=== PATIENT | female | born 1990 | race Caucasian/White ===

== ENCOUNTER → 2018-01-10 | Outpatient (CLI) | payer OTHER | LOC: FIMAGING 09:53 | PROVIDERS: ATTEND Advanced Practice Midwife | DX: O09.292 Supervision of pregnancy with other poor reproductive or obstetric history, second trimester (principal); O99.280 Endocrine, nutritional and metabolic diseases complicating pregnancy, unspecified trimester; O99.612 Diseases of the digestive system complicating pregnancy, second trimester; Z3A.19 19 weeks gestation of pregnancy ==

== ENCOUNTER 2018-06-12 15:43 | Inpatient (IN) | payer OTHER ==
--- NOTE | 2018-06-12 16:27 | PDGENHP ---
History and Physical History and Physical: CARE: [facility] HPI: Patient is a 27 yo G 2 P 0 @ 41 +5 weeks that presents to L&D with complaints of strong uterine contractions and prodromal labor x 48 hours. She states that she has not slept for 2 days and requests augmentation of labor and is considering epidural for pain relief. EDC: 05/31/2018 which is based on LMP: 08/16/2017 which is known and consistent with Ultrasound at 20 weeks. Her is complicated by: ulcerative colitis, hashimotos, anxiety, and carpal tunnel Review of Systems: Constitutional: Denies any fever, chills, or fatigue HEENT: denies any visual changes, difficulty swallowing, hearing loss Cardiovascular: Denies any chest pain, palpitations, leg swelling Respiratory: denies any cough, wheezing, or shortness of breathe GI: Denies any nausea, vomiting, diarrhea, constipation : denies any dysuria, urgency, frequency, vaginal bleeding Musculoskeletal: denies any muscle or bone pain Skin: denies any rashes Neuro: denies any headache, seizures, lightheadedness, dizziness, or loss of consciousness Psychiatric: denies any depression, anxiety, or SI/HI thoughts HISTORY: Previous OB history: 1 prior AB Social history: Family history: denies relevant Past medical history: ulcerative colitis (on meds), carpal tunnel, hashimotos Past surgical history: oral surgery, no general anesthesia Medications: PNV, synthroid, balsalazide, probiotics, magnesium Allergies (list reaction): NKDA LABS: Rh: B+ ABS: Neg Rubella: Immune HbsAg: NR HIV: NR VDRL: NR 1hr: 65 GC: Neg Chlamydia: Neg Pap: 2017 ASCUS HPV neg GBS: neg BMI: (prepreg) 22.3 PHYSICAL EXAM: Constitutional: WN, A&Ox3 HEENT: normocephalic atraumatic, supple Heart: RRR, no murmur Chest: CTA-B Skin: warm, dry, intact Abdomen: Soft, nontender, gravid SVE: 4-5cm/90/0 per CNM from [facility] Extremities: trace edema, negative homans sign Neuro: grossly normal Psych: normal affect assessment: FHT baseline 145, +accels, no decels, moderate variability Contractions: toco q 5-6 Assessment: 1) 27 yo G 2 P 0 with IUP@ 41weeks 5 days 2) latent phase labor 3) GBS neg 4) Cat 1 FHR tracing Plan: 1) Admit to L&D 2) Plan pitocin augmentation 3) ADAMS if patient desires
[2018-06-12] MEDS ORDERED: EPSOM SALT 454 GM TP PRN (16:28)
[2018-06-12] MEDS ORDERED: AMMONIA AROMATIC 1 EACH AMP IH PRN (16:28)
[2018-06-12] MEDS ORDERED: OXYTOCIN/RINGERS LACTATE 1,000 ML IV PRN (16:28)
[2018-06-12] MEDS ORDERED: OLIVE OIL 118 ML BTL MISC PRN (16:28)
[2018-06-12] MEDS ORDERED: LR 500 ML IV PRN (16:28)
[2018-06-12] MEDS ORDERED: MISOPROSTOL 200 MCG TAB PO PRN (16:28)
[2018-06-12] MEDS ORDERED: IBUPROFEN 600 MG TAB PO PRN (16:28)
[2018-06-12] MEDS ORDERED: TERBUTALINE SULFATE 1 MG/ML VIAL IV PRN (16:28)
[2018-06-12] MEDS ORDERED: LIDOCAINE 1% 300 MG/30 ML SDV SC PRN (16:28)
[2018-06-12] MEDS ORDERED: OXYTOCIN/RINGERS LACTATE 500 ML IV SCH (16:30)
[2018-06-12 17:32] LABS: PLATELET COUNT 295 10^3/uL (150-400)
[2018-06-12] MEDS ORDERED: OLIVE OIL 118 ML BTL ONE (17:45)
[2018-06-12] MEDS ORDERED: AMMONIA AROMATIC 1 EACH AMP IH ONE (17:45)
[2018-06-12] MEDS ORDERED: OXYTOCIN 10 UNIT/ML VIAL ONE (17:45)
[2018-06-12] MEDS ORDERED: MISOPROSTOL 200 MCG TAB ONE (17:45)
[2018-06-12] MEDS ORDERED: TERBUTALINE SULFATE 1 MG/ML VIAL ONE (17:45)
[2018-06-12] MEDS ORDERED: LIDOCAINE 1% 300 MG/30 ML SDV ONE (17:45)
[2018-06-12] MEDS ORDERED: fentaNYL 2MCG/ML/BUP 0.1% RTU 100 ML BAG EP ONE (18:23)
[2018-06-12] MEDS ORDERED: PHENYLEPHRINE HCL 100 MCG/ML SYR ONE (18:24)
[2018-06-12] MEDS ORDERED: ACETAMINOPHEN 325 MG TAB PO ONE (19:05)
[2018-06-12] MEDS ORDERED: NALOXONE HCL 0.4 MG/ML INJ IVP PRN (19:15)
[2018-06-12] MEDS ORDERED: METOCLOPRAMIDE 10 MG/2 ML VIAL IVP PRN (19:15)
[2018-06-12] MEDS ORDERED: ONDANSETRON 4 MG/2 ML VIAL IVP PRN (19:15)
--- NOTE | 2018-06-12 19:18 | PREANESOB ---
Obstetric Pre-Anesthesia Info - General Info Proposed Procedure: labor epidural : 2 Para: 0 FARHEEN: 05/31/18 Gestational Age: 41 week(s) and 5 day(s) - Info Status: Full Term FHR Pattern: Reassuring - Labor Status Cervical Dilation per last OB SVE: 4 Indications for Labor Analgesia: Pain Control Labor Epidural: Yes Anesthesia Allergies/Adverse Reactions: Allergy/AdvReac Type Severity Reaction Status Date / Time No Known Drug Allergies Allergy Verified 06/12/18 16:28 Home Medications: Medication Instructions Recorded Balsalazide Disodium 06/12/18 06/12/18 Synthroid 88 mcg (*) 06/12/18 Visit Medications: Generic Name Dose Route Start Last Admin Trade Name Freq PRN Reason Stop Dose Admin Ammonia (Aromatic Spirit) 1 each 06/12/18 16:28 Ammonia Aromatic IH 06/22/18 16:27 ONCE PRN Fainting Lactated Ringer's 1,000 mls @ 0 mls/hr 06/12/18 16:28 Lr IV 06/13/18 16:27 PRN PRN SEE PROTOCOL CONDITIONS Protocol Per Protocol Lactated Ringer's 500 mls @ 500 mls/hr 06/12/18 16:28 Lr IV 06/13/18 16:28 PRN PRN Maternal Hypotension Oxytocin/Lactated Ringer's 1,000 mls @ 0 mls/hr 06/12/18 16:28 Pitocin 20 Units/Lr (Premix) IV PRN PRN Post bleeding As Directed Oxytocin/Lactated Ringer's 500 mls @ 0 mls/hr 06/12/18 16:30 Pitocin 30 Units/Lr (Premix) IV 12/09/18 16:29 CONT FARIDA Protocol Per Protocol Ibuprofen 600 mg 06/12/18 16:28 Motrin PO ONCE PRN post , pain Lidocaine HCl 300 mg 06/12/18 16:28 Lidocaine Hcl 1% SC 12/09/18 16:27 ONCE PRN episiotomy Magnesium Sulfate 454 gm 06/12/18 16:28 Epsom Salt TP 12/09/18 16:27 Q1H PRN perineal discomfort Misoprostol 800 - 1,000 mcg 06/12/18 16:28 Cytotec PO 12/09/18 16:27 ONCE PRN Vaginal Atony/Bleeding [place] Oil 118 ml 06/12/18 16:28 Sweet Oil MISC 12/09/18 16:27 ONCE PRN perineal massage Terbutaline Sulfate 0.25 mg 06/12/18 16:28 Brethine IV 12/09/18 16:27 ONCE PRN Tachysystole Discontinued Medications Generic Name Dose Route Start Last Admin Trade Name Fern PRN Reason Stop Dose Admin Acetaminophen 650 mg 06/12/18 19:05 Tylenol PO 06/12/18 19:06 ONCE ONE Ammonia (Aromatic Spirit) Confirm 06/12/18 17:45 Ammonia Aromatic Administered 06/12/18 17:46 Dose 1 each IH .STK-MED ONE Fentanyl/Bupivacaine HCl Confirm 06/12/18 18:23 Fentanyl/Bupivacaine/Ns 2 Mcg/Ml 0.1% (Premix Administered 06/12/18 18:24 Dose 100 ml EP .STK-MED ONE Lidocaine HCl Confirm 06/12/18 17:45 Lidocaine Hcl 1% Administered 06/12/18 17:46 Dose 300 mg .ROUTE .STK-MED ONE Misoprostol Confirm 06/12/18 17:45 Cytotec Administered 06/12/18 17:46 Dose 1,000 mcg .ROUTE .STK-MED ONE [place] Oil Confirm 06/12/18 17:45 Sweet Oil Administered 06/12/18 17:46 Dose 118 ml .ROUTE .STK-MED ONE Oxytocin Confirm 06/12/18 17:45 Pitocin Administered 06/12/18 17:46 Dose 40 unit .ROUTE .STK-MED ONE Phenylephrine HCl Confirm 06/12/18 18:24 Neosynephrine Administered 06/12/18 18:25 Dose 1,000 mcg .ROUTE .STK-MED ONE Terbutaline Sulfate Confirm 06/12/18 17:45 Brethine Administered 06/12/18 17:46 Dose 1 mg .ROUTE .STK-MED ONE - Vital Signs Height/Weight (Nursing): Height 149.86 cm Weight 63.957 kg - Focused Exam Neck exam: FROM Mallampati Score: Class 1 Mouth exam: normal dental/mouth exam Pulmonary: no respiratory distress Cardiovascular: regular rate and rhythym Labs: 06/12/18 17:19 Patient ABO/Rh B POSITIVE 06/12/18 17:19 - Plan Consent Signed and on Chart: Yes Patient/Guardian Understands and Agrees to Plan: Yes
[2018-06-12] MEDS ORDERED: LR 500 ML IV SCH (19:30)
--- NOTE | 2018-06-12 20:30 | OBPROG ---
Labor Progress Note Assessment/Plan: Assessment: active labor Plan: continue pitocin augmentation 06/12/18 20:27 Subjective/Intrapartum Course: 06/12/18 20:27 FHR cat 1 Contractions q 4-5 min Objective: 06/12/18 17:19 Patient ABO/Rh B POSITIVE 06/12/18 17:19 - SVE Dilation (cm): 6 Effacement (%): 100 Station: -1 Membranes: Intact - Contraction Pattern Assessment Current Contraction Pattern: Regular - FHR Assessment Johnston FHR (bpm): 140 FHR Pattern Variability: Moderate FHR Category: 1 Oxytocin Orders Assessment - Pre-Induction/Augmentation Assessment Presentation: Vertex Gestational Age: 41 week(s) and 5 day(s) Gestational Age Determined By: Last Menstral Period Estimated Weight: 2501-3400g Membrane Status: Intact Current Contraction Pattern: Regular - Heart Rate Pattern [place] FHR Category: 1 ICD10 Worksheet Patient Problems: Problems Problem Status Onset 41 weeks gestation of Acute Prolonged first stage of labor Acute
[2018-06-12] MEDS: LR 1,000 ML IV PRN (21:26)
[2018-06-12] MEDS: PHENYLEPHRINE HCL 100 MCG/ML SYR IVP PRN ×2 (22:23→22:56)
[2018-06-12] MEDS: fentaNYL 2MCG/ML/BUP 0.1% RTU 100 ML EP SCH (23:40)
[2018-06-12] MEDS ORDERED: ACETAMINOPHEN 500 MG TAB PO ONE (23:45)
[2018-06-13] MEDS ORDERED: LIDO/EPI 2% **for epidural** 20 ML SDV ONE (02:07)
[2018-06-13] MEDS: LR 1,000 ML IV PRN (06:17)
--- NOTE | 2018-06-13 06:42 | OBPROG ---
Labor Progress Note Assessment/Plan: Assessment: active labor Plan: continue pitocin augmentation 06/12/18 20:27 Subjective/Intrapartum Course: 06/12/18 20:27 FHR cat 1 Contractions q 4-5 min 06/13/18 06:39 Comfortable with epidural, instructed on pushing, snailer and FOB at bedside for support. 06/13/18 06:42 transfer of care to [facility] at this time. Objective: 06/12/18 17:19 Patient ABO/Rh B POSITIVE 06/12/18 17:19 - SVE Dilation (cm): 10 Effacement (%): 100 Station: 0 Membranes: Intact - Contraction Pattern Assessment Current Contraction Pattern: Regular - FHR Assessment [place] FHR (bpm): 135 FHR Pattern Variability: Moderate FHR Category: 1 - Physical Exam Estimated Weight: 2501-3400g Oxytocin Orders Assessment - Pre-Induction/Augmentation Assessment Presentation: Vertex Gestational Age: 41 week(s) and 5 day(s) Estimated Weight: 2501-3400g ICD10 Worksheet Patient Problems: Problems Problem Status Onset 41 weeks gestation of Acute Prolonged first stage of labor Acute
[2018-06-13] MEDS: ACETAMINOPHEN 325 MG TAB PO PRN ×4 (08:51→22:36)
[2018-06-13] MEDS: LEVOTHYROXINE 88 MCG TAB PO SCH (08:52)
--- NOTE | 2018-06-13 09:00 | OBPROG ---
Labor Progress Note Assessment/Plan: Assessment: Plan: 06/13/18 09:00 06/13/18 09:04 Tylenol for fever; urine culture pending however U/A suggestive of UTI. Desires waiting until after delivery to start antibiotics. Position change; reassess FHT Epidural bolus and labor down Subjective/Intrapartum Course: 06/12/18 20:27 FHR cat 1 Contractions q 4-5 min 06/13/18 06:39 Comfortable with epidural, instructed on pushing, boiler control room operator and FOB at bedside for support. 06/13/18 06:42 transfer of care to [facility] at this time. 06/13/18 08:56 Has been having urge to push and pushing with contractions. Has bolused epidural now a few times with some relief but still feeling quite a bit. Is now requesting that it is bolused so she can labor down. Objective: 06/12/18 17:19 Patient ABO/Rh B POSITIVE 06/12/18 17:19 Febrile, 38.3 VE- Baby had been in ROT presentation; after obtaining consent from patient manual rotated to [facility]ANDOL[facility]. Has moved baby from -1 presentation to +1 with pushing though not strongly pushing with contractions. - SVE Dilation (cm): 10 Effacement (%): 100 Station: +1 Membranes: AROM, Intact Amniotic Fluid Color: Clear - Contraction Pattern Assessment Current Contraction Pattern: Regular (Had been having contractions q 2.5 to 3 minutes lasting 90 seconds. Less than a minute resting in between contractions. Decreased pitocin to 6 iu's to decrease frequency and increasing resting) - FHR Assessment [place] FHR (bpm): 120 (early, variable and late decels present) FHR Pattern Variability: Moderate FHR Category: 2 - Physical Exam Estimated Weight: 2501-3400g Oxytocin Orders Assessment - Pre-Induction/Augmentation Assessment Presentation: Vertex Gestational Age: 41 week(s) and 5 day(s) Estimated Weight: 2501-3400g ICD10 Worksheet Patient Problems: Problems Problem Status Onset 41 weeks gestation of Acute Prolonged first stage of labor Acute
[2018-06-13] MEDS: fentaNYL 2MCG/ML/BUP 0.1% RTU 100 ML EP SCH (09:53)
[2018-06-13] MEDS: BALSALAZIDE DISODIUM 750 MG CAP PO SCH ×3 (14:59→22:36)
--- NOTE | 2018-06-13 16:04 | OBDEL ---
Info Type: Vaginal Presentation at Delivery: Vertex (OA to LOT presentation) L&D Analgesia/Anesthesia Type: Epidural GBS+: No Intrapartum Medications: Generic Name Dose Route Start Last Admin Trade Name Freq PRN Reason Stop Dose Admin Acetaminophen 650 mg 06/13/18 08:41 06/13/18 13:00 Tylenol PO 12/10/18 08:40 650 mg Q4HRS PRN Administration Pain, Mild/Fever, Can Take PO Balsalazide 2,250 mg 06/13/18 09:00 06/13/18 14:59 Colazal PO 12/10/18 08:59 Not Given TID FARIDA Lactated Ringer's 1,000 mls @ 0 mls/hr 06/12/18 16:28 06/13/18 06:17 Lr IV 06/13/18 16:27 1,000 mls PRN PRN Administration SEE PROTOCOL CONDITIONS Protocol Per Protocol Oxytocin/Lactated Ringer's 500 mls @ 0 mls/hr 06/12/18 16:30 06/12/18 19:59 Pitocin 30 Units/Lr (Premix) IV 12/09/18 16:29 500 mls CONT FARIDA Administration Protocol Per Protocol Fentanyl/Bupivacaine HCl 100 mls @ 0 mls/hr 06/12/18 19:30 06/13/18 09:53 Fentanyl/Bupivacaine/Ns 2 Mcg/Ml 0.1% (Premix EP 06/22/18 19:29 100 mls CONT FARIDA Administration Protocol As Directed Levothyroxine Sodium 88 mcg 06/13/18 07:00 06/13/18 08:52 Synthroid PO 12/10/18 06:59 88 mcg DAILY AT 6AM FARIDA Administration Phenylephrine HCl 100 mcg 06/12/18 19:15 06/12/18 22:56 Neosynephrine IVP 12/09/18 19:14 100 mcg .Q2M PRN Administration Hypotension Discontinued Medications Generic Name Dose Route Start Last Admin Trade Name Freq PRN Reason Stop Dose Admin Acetaminophen 650 mg 06/12/18 19:05 06/12/18 19:28 Tylenol PO 06/12/18 19:06 650 mg ONCE ONE Administration Acetaminophen 1,000 mg 06/12/18 23:45 06/12/18 23:39 Tylenol PO 06/12/18 23:46 1,000 mg ONCE ONE Administration - Hospital Course Intrapartum: 06/12/18 20:27 FHR cat 1 Contractions q 4-5 min 06/13/18 06:39 Comfortable with epidural, instructed on pushing, psychologist experimental and FOB at bedside for support. 06/13/18 06:42 transfer of care to Renetta Butler at this time. 06/13/18 08:56 Has been having urge to push and pushing with contractions. Has bolused epidural now a few times with some relief but still feeling quite a bit. Is now requesting that it is bolused so she can labor down. Indications for Delivery: Postterm Favorable Cervix Vaginal Delivery - Delivery Provider Delivery Physician/CNM: Renetta Butler - Labor and Delivery Onset of Contractions Date: 06/11/18 Onset of Contractions Time: 17:00 Onset of Contractions Type: Induced Rupture of Membranes Date: 06/13/18 Rupture of Membranes Time: 07:35 Rupture of Membranes Type: Artificial Amniotic Fluid Color: Clear (Initially clear; thick mec present at ), Thick Meconium Dilation Complete Date: 06/13/18 Dilation Complete Time: 06:36 Placenta Delivery Date: 06/13/18 Placenta Delivery Time: 14:51 Total Hours of Labor: 45 Laceration: 2nd Degree (2nd degree left labial repaired with 4.0 vicryl; right labial button hole laceration repaired to ensure approximation; 1st degree perineal laceration repaired for apprx) Repair: 4-0, Vicryl Vaginal Sponge Count Correct: Yes Vaginal Needle Count Correct: Yes Vaginal Sweep Performed: Yes EBL: 200 Delivery Events: Nuchal Cord, Other (Specify) (Required many position changes to encourage decent. Floppy baby with thick mec immediately placed on the mother's abdomen. Cord clamped x 2 and cut and immediately handed to NICU for assessment. Required PPV and stimulation. Responded well always maintaining adequate oxygenation and heart rate. Apgars 4 & 7) Cord Gases: Cord Gases Cord Blood PCO2 53.1 mmHg (37-60) 06/13/18 14:38 Cord Base Excess -9.6 mEq/L (-13.6--3.2) 06/13/18 14:38 Cord ABG pH 7.18 (7.10-7.37) 06/13/18 14:38 Cord VBG pH 7.29 (7.20-7.42) 06/13/18 14:38 - Medications Labor Augmentation/Induction Methods Used: Pitocin Labor Augmentation/Induction Indication: Post Dates Operative Report - Delivery Cord Gases: Cord Gases Cord Blood PCO2 53.1 mmHg (37-60) 06/13/18 14:38 Cord Base Excess -9.6 mEq/L (-13.6--3.2) 06/13/18 14:38 Cord ABG pH 7.18 (7.10-7.37) 06/13/18 14:38 Cord VBG pH 7.29 (7.20-7.42) 06/13/18 14:38 [place] Data FARHEEN: 05/31/18 Gestational Age: 41 week(s) and 6 day(s) Johnston Delivery Date: 06/13/18 Delivery Time: 14:38 Sex of : Female ICD10 Worksheet Patient Problems: Problems Problem Status Onset 41 weeks gestation of Acute Prolonged first stage of labor Acute Prolonged second stage Acute UTI (urinary tract infection) during Acute - ICD10 Problem Qualifiers (1) Prolonged second stage (2) UTI (urinary tract infection) during
--- NOTE | 2018-06-13 16:21 | OBPP ---
Progress Note Assessment/Plan: Assessment: Plan: 06/13/18 09:00 06/13/18 09:04 Tylenol for fever; urine culture pending however U/A suggestive of UTI. Desires waiting until after delivery to start antibiotics. Position change; reassess FHT Epidural bolus and labor down 06/13/18 16:28 Start IV Rocephin 1 gram daily; IV versus po due to ulcerative colitis and difficulty tolerating antibiotics. CBC in am to assess WBC's Awaiting urine culture results Subjective/ Course: 06/13/18 16:26 Patient has had recurrent febrile episodes up to 38.4. Oral tylenol administered with good results. Pt desired waiting until delivery to start antibiotics for presumed UTI. Objective: 06/12/18 17:19 Patient ABO/Rh B POSITIVE 06/12/18 17:19 U/A + bacteria, RBC's, WBC's, Leucocytes, neg nitrates. Urine cloudy with blood present
[2018-06-13] MEDS ORDERED: PIPERACILLIN/TAZO 3.375 GM/DEX 50 ML IV SCH (18:00)
[2018-06-14] MEDS: ACETAMINOPHEN 325 MG TAB PO PRN ×4 (04:27→21:45)
[2018-06-14] MEDS: LEVOTHYROXINE 88 MCG TAB PO SCH (06:00)
[2018-06-14 06:22] LABS: PLATELET COUNT 254 10^3/uL (150-400)
[2018-06-14] MEDS: BALSALAZIDE DISODIUM 750 MG CAP PO SCH ×4 (09:59→21:46)
[2018-06-14] MEDS: FERROUS SULFATE 325 MG TAB PO SCH (10:01)
--- NOTE | 2018-06-14 11:04 | OBPP ---
Progress Note Assessment/Plan: Assessment: 27 y/o P1 s/p PPD #1 with support from Pain controlled with oral pain meds Afebrile VSS Plan: Routine pp care Anticipate 06/14/18 11:01 Subjective/ Course: 06/13/18 16:26 Patient has had recurrent febrile episodes up to 38.4. Oral tylenol administered with good results. Pt desired waiting until delivery to start antibiotics for presumed UTI. 06/14/18 11:03 Doing well this am. Afebrile. Pain well controlled with tylenol. Tolerating regular diet and ambulating. Vag bleeding wnl. Objective: 06/14/18 06:10 Patient ABO/Rh B POSITIVE 06/12/18 17:19 Temp Pulse Resp BP Pulse Ox 36.2 C 61 16 91/66 L 96 06/14/18 08:00 06/14/18 08:00 06/14/18 08:00 06/14/18 08:00 06/14/18 08:00 Uterine Position/Fundal Height: At Umbilicus Uterine Tone: Firm Physical Exam - Physical Exam EENT: normal ENT inspection Neck: non-tender Respiratory: normal breath sounds Cardiac/Chest: regular rate, rhythm Abdomen: non-tender Extremities: normal range of motion Skin: normal color, warm/dry Neuro/Psych: no motor/sensory deficits, alert, normal mood/affect, oriented x 3
--- NOTE | 2018-06-14 17:45 | POSTANESTH ---
Post Anesthetic Evaluation Cardiovascular Status: Normal, Stable Respiratory Status: Normal, Stable Level of Consciousness/Mental Status: Can Participate in Eval Pain Control: Adequate, Prn Tx Ordered Nausea/Vomiting Control: Adequate, Prn Tx Ordered Complications Possibly Related to Anesthesia: None Noted (no adverse effects of ADAMS)
[2018-06-15] MEDS: LEVOTHYROXINE 88 MCG TAB PO SCH (06:02)
[2018-06-15] MEDS: ACETAMINOPHEN 325 MG TAB PO PRN ×3 (06:02→15:36)
[2018-06-15 06:31] LABS: PLATELET COUNT 327 10^3/uL (150-400)
[2018-06-15] MEDS: BALSALAZIDE DISODIUM 750 MG CAP PO SCH ×2 (09:21→16:09)
[2018-06-15] MEDS: FERROUS SULFATE 325 MG TAB PO SCH (09:22)
[2018-06-15 13:09] VITALS: BP 93/64
--- NOTE | 2018-06-15 18:10 | OBGCSDC ---
General Delivery Information - General Info : 2 Para: 1 Abortions: 1 Type: Vaginal L&D Analgesia/Anesthesia Type: Epidural Admission Date: 06/12/18 Labs: Patient ABO/Rh B POSITIVE 06/12/18 17:19 Hct 35.2 % (38.0-47.0) L 06/15/18 05:38 - Hospital Course Intrapartum: 06/12/18 20:27 FHR cat 1 Contractions q 4-5 min 06/13/18 06:39 Comfortable with epidural, instructed on pushing, refinery operator helper and FOB at bedside for support. 06/13/18 06:42 transfer of care to [facility]ett[facility]av[facility] at this time. 06/13/18 08:56 Has been having urge to push and pushing with contractions. Has bolused epidural now a few times with some relief but still feeling quite a bit. Is now requesting that it is bolused so she can labor down. : 06/13/18 16:26 Patient has had recurrent febrile episodes up to 38.4. Oral tylenol administered with good results. Pt desired waiting until delivery to start antibiotics for presumed UTI. 06/14/18 11:03 Doing well this am. Afebrile. Pain well controlled with tylenol. Tolerating regular diet and ambulating. Vag bleeding wnl. 06/15/18 18:09 S) Pt doing well, reports min pain and bleeding. she is ambulating and voiding without difficulty. She is - working with , baby is not transferring milk. She desires discharge home today. O) VSS, afebrile constitutional: WNF, A&Ox3 HEENT: normocephalic, atraumatic, supple Heart: RRR, No murmur Chest: CTA-B Breasts: soft, nontender, not engorged, nipples intact Abdomen: Soft, nontender Uterus: Firm at U-2 Lochia: Minimal rubra Perineum: Intact, healing well Extremities: Trace edema, and negative Crystal's sign Neuro: Grossly normal A) 27-year-old S/P PPD#2 P) Discharge to boarder today Continue Pelvic rest x6wks Discussed danger signs (infection, preeclampsia, depression, heavy bleeding, etc ) RTO in 2/4/6 weeks Vaginal - Delivery Provider Delivery Physician/CNM: Renetta Butler - Diagnosis Labor: Induced Rupture of Membranes Type: Artificial Amniotic Fluid Color: Clear (Initially clear; thick mec present at ), Thick Meconium Laceration: 2nd Degree (2nd degree left labial repaired with 4.0 vicryl; right labial button hole laceration repaired to ensure approximation; 1st degree perineal laceration repaired for apprx) Repair: 4-0, Vicryl Delivery Events: Nuchal Cord, Other (Specify) (Required many position changes to encourage decent. Floppy baby with thick mec immediately placed on the mother's abdomen. Cord clamped x 2 and cut and immediately handed to NICU for assessment. Required PPV and stimulation. Responded well always maintaining adequate oxygenation and heart rate. Apgars 4 & 7) - Delivery EBL: 200 Data FARHEEN: 05/31/18 Gestational Age: 42 week(s) and 1 day(s) [place] Delivery Date: 06/13/18 Delivery Time: 14:38 Sex of Infant: Female [place] Weight (gm): 2815 g Score (1 Min): 3 Score (5 Min): 7 Score (10 Min): 8
== END 2018-06-15 20:06 | disposition home or self-care (01) | DRG 806 ==
LOC: FLD 15:43 → FOB 06-13 18:21
PROVIDERS: ADMIT Advanced Practice Midwife; ATTEND Advanced Practice Midwife
PROC: 10907ZC Drainage of Amniotic Fluid, Therapeutic from Products of Conception, Via Natural or Artificial Opening (ICD-10-PCS; 2018-06-12)
PROC: 0KQM0ZZ Repair Perineum Muscle, Open Approach (ICD-10-PCS; principal; 2018-06-13)
PROC: 10E0XZZ Delivery of Products of Conception, External Approach (ICD-10-PCS; principal; 2018-06-13)
DX: O48.0 Post-term pregnancy (principal); O77.0 Labor and delivery complicated by meconium in amniotic fluid; K51.90 Ulcerative colitis, unspecified, without complications; O23.43 Unspecified infection of urinary tract in pregnancy, third trimester; O70.1 Second degree perineal laceration during delivery; O99.62 Diseases of the digestive system complicating childbirth; O99.284 Endocrine, nutritional and metabolic diseases complicating childbirth; O69.9XX0 Labor and delivery complicated by cord complication, unspecified, not applicable or unspecified; O99.344 Other mental disorders complicating childbirth; E06.3 Autoimmune thyroiditis; F41.9 Anxiety disorder, unspecified; Z3A.41 41 weeks gestation of pregnancy; Z37.0 Single live birth
CPT/HCPCS: J0696; J2370; J2590; J3105